=== PATIENT | female | born 1995 | race Asian ===

== ENCOUNTER 2017-08-13 16:51 | Emergency (ER) | payer OTHER ==
[~2017-08-13] VITALS: Ht 154.9 cm; Wt 54.9 kg
[2017-08-13 16:59] VITALS: BP 145/88
--- NOTE | 2017-08-13 17:05 | NUR ---
PT AMBULATED TO BED 4. Addendum: 08/13/17 at 1705 by [facility] PT AMBULATED TO BED 3.
--- NOTE | 2017-08-13 17:08 | NUR ---
22F BIB SELF C/O VAGINAL PAIN, "ITCHING AND INFLAMMATION", NON-RADIATING, 4/10 X 1 WEEK; PT STATES NO VAGINAL DISCHARGE, NO VAGINAL BLEEDING, NO URINARY BURNING, FREQUENCY, RETENTION, OR PAIN ON URINATION AT THIS TIME; PT STATES NO N/V/D AT THIS TIME; PT AA&OX4, BL LUNG SOUNDS CLEAR, RR EVEN/UNLABORED, SKIN IS WARM/DRY/INTACT WITH EVEN AND STEADY GAIT; PT RESTING IN BED WITH HOB ELEVATED AND IN LOWEST POSITION; POSITIONED FOR COMFORT; ER MD MADE AWARE OF STATUS. WILL CONTINUE TO MONITOR.
--- NOTE | 2017-08-13 17:12 | NUR ---
ER MD DR. PACK EVALAUATING PT AT BEDSIDE.
[2017-08-13 17:24] VITALS: BP 134/90
--- NOTE | 2017-08-13 17:24 | NUR ---
Patient discharged with v/s stable. Written and verbal after care instructions given and explained. Patient alert, oriented and verbalized understanding of instructions. Ambulatory with steady gait. All questions addressed prior to discharge. ID band removed. Patient advised to follow up with PMD. Rx of DIFLUCAN 150MG TAB & CIPRO 500MG TAB given. Patient educated on indication of medication including possible reaction and side effects. Opportunity to ask questions provided and answered.
== END 2017-08-13 17:24 | disposition home or self-care (01) ==
LOC: MED 16:51
DX: N39.0 Urinary tract infection, site not specified (principal); B37.9 Candidiasis, unspecified
CPT/HCPCS: 81002; 81025; 99283

== ENCOUNTER 2017-09-15 10:17 | Emergency (ER) | payer OTHER ==
[~2017-09-15] VITALS: Ht 154.9 cm; Wt 54.9 kg
[2017-09-15 10:21] VITALS: BP 128/85
--- NOTE | 2017-09-15 10:25 | NUR ---
PATIENT AMBULATED TO BED 1.
--- NOTE | 2017-09-15 10:33 | NUR ---
22 YO F BIB self w/ c/o burning, itching upon urination, and urinary frequency x 2 days. Pt reports symtpoms began at the start of her menstrual period 2 days ago. A & O x 4. GCS 15. CMS intact. Ambulatory w/ steady gait. Pr denies n/v/d at this time, just urinary discomfort. ER MD Howard notified of pt status. Pt needs met at this time. Will continue to monitor.
[2017-09-15 10:53] LABS: BILIRUBIN,URINE NEGATIVE (NEGATIVE); BLOOD, URINE TRACE-L (NEGATIVE); COLOR,URINE YELLOW (YELLOW); LEUKOCYTE ESTERASE ,URINE 2+ (NEGATIVE); NITRITE, URINE NEGATIVE (NEGATIVE); PH,URINE 5.5 (5.0-9.0); UGLUCOSE NEGATIVE (NEGATIVE)
[2017-09-15 11:07] VITALS: BP 128/85
[2017-09-15 11:07] LABS: APPEARANCE,URINE HAZY (CLEAR)
--- NOTE | 2017-09-15 11:08 | NUR ---
Patient discharged with v/s stable. Written and verbal after care instructions given and explained. Patient alert, oriented and verbalized understanding of instructions. Ambulatory with steady gait. All questions addressed prior to discharge. ID band removed. Patient advised to follow up with PMD. Rx of Diflucan and Cipro given. Patient educated on indication of medication including possible reaction and side effects. Opportunity to ask questions provided and answered.
[2017-09-15 12:04] LABS: RBC,URINE 0-5 (RARE) /HPF (0-5)
[2017-09-15 12:05] LABS: URINE AMORPHOUS URATE 1+ /HPF (None Seen); WBC,URINE 0-5 (RARE) /HPF (0-5)
== END 2017-09-15 11:08 | disposition home or self-care (01) ==
LOC: MED 10:17
DX: N39.0 Urinary tract infection, site not specified (principal)
CPT/HCPCS: 81001; 81025; 87086; 99284